=== PATIENT | female | born 1965 | race Caucasian/White ===

== ENCOUNTER → 2017-09-18 | Outpatient (CLI) | payer BC | END | disposition home or self-care (01) | LOC: C.PAPS 11:56 | PROVIDERS: ATTEND Obstetrics & Gynecology | DX: Z01.419 Encounter for gynecological examination (general) (routine) without abnormal findings (principal) ==

== ENCOUNTER → 2017-09-24 | Outpatient (CLI) | payer BC ==
--- NOTE | 2017-09-25 13:39 | MAMMOGRAPHY REPORT ---
BILATERAL DIGITAL SCREENING MAMMOGRAM TOMOSYNTHESIS WITH CAD: 09/24/2017 CLINICAL HISTORY: Routine screening. Patient has no complaints. TECHNIQUE: The study was acquired using full field digital technology and interpreted from soft copy. Breast tomosynthesis in addition to standard 2D mammography was performed. Current study was also ev aluated with a Computer Aided Detection (CAD) system. COMPARISON: Comparison is made to exams dated: 03/23/2015 mammogram, 03/22/2014 mammogram, 03/18/2013 eunice mogram, 03/17/2012 mammogram, 03/02/2011 mammogram, and 03/01/2010 mammogram - [facility]. BREAST COMPOSITION: There are scattered areas of fibroglandular density in both breasts. FINDINGS: There are stable loosely grouped punctate calcifications in the 12:00 posterior left breast , and a few other scattered benign round calcifications bilaterally. No new suspicious mass, architec tural distortion or cluster of microcalcifications is seen. IMPRESSION: ACR BI-RADS CATEGORY 2: BENIGN There is no mammographic evidence of malignancy. A 1 year screening mammogram is recommended.( 019) The patient will receive written notification of the results. Some breast cancers are not detected with mammography. A negative mammographic report should not felipe y biopsy if a clinically suggestive mass is present. Rosa Roberts M.D. ay/:09/24/2017 17:46:56 [employer] Operator: RT Georgina(Feliz)(M), [facility] letter sent: Normal 1/2 BI-RADS Code: ACR BI-RADS Category 2: Benign
== END | disposition home or self-care (01) ==
LOC: C.MAMM 10:52
PROVIDERS: ATTEND Obstetrics & Gynecology
DX: Z12.31 Encounter for screening mammogram for malignant neoplasm of breast (principal)

== ENCOUNTER 2022-01-04 11:10 | Observation (INO) ==
[2022-01-04 12:06] LABS: Basophils # (auto) 0.06 K/uL (0-0.2); Basophils % (auto) 0.6 %; Eosinophils # (auto) 0.41 K/uL (0-0.50); Eosinophils % (auto) 4.2 %; Hematocrit (blood only) 37.4 % (34.1-44.9); Hemoglobin 12.7 g/dl (12.0-16.0); Immature Granulocytes # (auto) 0.03 K/uL (0.00-0.02); Immature Granulocytes % (auto) 0.3 %; Lymphocytes # (auto) 3.02 K/uL (1.2-3.4); Lymphocytes % (auto) 30.6 %; Mean Corpuscular Hemoglobin 29.5 pg (25.0-34.0); Mean Platelet Volume 10.2 fL (9.4-12.3); Monocytes # (auto) 0.78 K/uL (0.24-0.82); Monocytes % (auto) 7.9 %; Neutrophils # (auto) 5.57 K/uL (1.4-6.5); Neutrophils % (auto) 56.4 %; Platelet Count 266 K/uL (130-400); RDW Coefficient of Variation 12.3 % (11.5-14.5); RDW Standard Deviation 39.2 fL (36.4-46.3); White Blood Count 9.87 K/ul (4.8-10.8)
--- NOTE | 2022-01-04 12:12 | XRay Report ---
XR chest 1V portable CLINICAL HISTORY: Chest Pain TECHNIQUE: Single frontal radiograph of the chest was obtained. Comparison: None available at the time of this dictation. FINDINGS: Exam is limited by underpenetration. The cardiomediastinal silhouette is normal. The lungs are clear. No evidence of pleural effusion or pneumothorax. IMPRESSION: No acute chest disease. ACT 112: Negative or not required by law. Electronically signed by: Art Samayoa M.D. 01/04/2022 12:10 PM
[2022-01-04] MEDS ORDERED: NITROGLYCERIN 2% OINTMENT 30GM TUBE EXT STA (12:18)
[2022-01-04 12:29] LABS: Albumin Globulin Ratio 1.4 (0.9-2); Albumin Level 4.1 gm/dl (3.4-5.0); BUN Creatinine Ratio 21.1 (10-20); Bilirubin,Total 0.4 mg/dl (0.2-1.0); Calcium 9.3 mg/dl (8.5-10.1); Creatinine Clr Calc Pharmacy 88.9 ml/min; Est GFR (African American) 102.3 ml/min; Est GFR (Non-African American) 88.3 ml/min; Potassium 3.7 mmol/L (3.5-5.1); Total Protein 7.1 gm/dl (6.0-8.3)
[2022-01-04 12:34] LABS: Troponin I High Sensitivity 14.9 pg/ml (0-14)
[2022-01-04] MEDS ORDERED: hydrALAZINE HCL 20 MG/ML VIAL IV ONE (13:56)
--- NOTE | 2022-01-04 13:56 | Emergency Department Note ---
Impression & Plan Hypertensive emergency, Chest discomfort, Abnormal ECG, Elevated troponin ED Provider Note INFORMANT: Patient ED PROVIDER(S): Jose Mena MD CHIEF COMPLAINT: High blood pressure PLAN: Disposition: Admitted Condition: Good Outpatient prescription management: none Referral: None MEDICAL DECISION MAKING: Patient presented because of high blood pressure but also had chest discomfort and an abnormal ECG. She was given Nitropaste. Blood work was performed. Her ECG here did confirm the anterior and inferolateral T wave inversions. The patient did feel somewhat better after the Nitropaste. She was also given a dose of IV hydralazine. I did discuss the case with cardiology, Dr. Rendon. He recommended admission, serial troponin, and echocardiogram with potential other testing. He recommended not to give IV heparin at this point. I did consult with [facility]. Patient was evaluated in the ER admitted for further management. Triage Nursing notes reviewed and agree them. Vital Signs: reviewed and remarkable for hypertension Differential diagnosis: Benign hypertension, hypertensive emergency, cardiovascular pathology, toxicologic, pheochromocytoma, electrolyte abnormality, renal disease, endorgan damage, as well as other pathologies. Diagnostics interpreted by me: ECG: Twelve-lead ECG reveals a normal sinus rhythm at 70 bpm. There is inferior and anterolateral T wave inversions. No ST elevation. Cardiac Monitoring: Cardiac monitoring ordered by me: The patient was placed on continuous cardiac monitoring and observed. It revealed a normal sinus rhythm at 65 beats per minute without ectopy or evidence of dysrhythmia. Imaging studies: Chest x-ray. Findings: A chest x-ray was performed and revealed no pneumothorax, effusion, infiltrate, pulmonary edema, free air under the diaphragm, or wide mediastinum. Impression: No acute disease. HPI: The patient is a 56 year old female who presents to the Emergency Room with complaints of high blood pressure. This started today and is noted to be found at her doctor's office. The patient has noted her blood pressure was elevated over the last week or so. She noted over the last few days she has had some chest pressure. When she was at the doctor's office she was found to have a blood pressure that was greater than 180/100. She was given an oral dose of clonidine. EMS was summoned as she had an abnormal ECG with inferior and anterolateral T wave inversions. The patient was given aspirin by EMS.. The patient also notes the following associated symptoms, none. Current pain is rated as 0/10. Pt denies LOC, headache, fevers, chills, diaphoresis, visual changes, neck pain, breathing difficulties, nausea, vomiting, abdominal pain, back pain, melena, hematochezia, urinary symptoms, numbness, weakness, lymphadenopathy, rash, or other complaints. ROS: See above HPI for pertinent positives & negatives. A total of 10 systems reviewed and were otherwise negative. PAST MEDICAL HISTORY:See Below , hypothyroidism PAST SURGICAL HISTORY:See Below, FAMILY HISTORY:See Below SOCIAL HISTORY:See Below, HOME MEDICATIONS:See Below ALLERGIES:See Below VITALS:See Below PHYSICAL EXAMINATION: GENERAL: Awake, alert, well-appearing, in no distress HENT: Normocephalic, atraumatic. Oropharynx unremarkable. EYES: Normal conjunctiva. Sclera non-icteric. NECK: Inspection normal. Non-tender. Supple. No nuchal rigidity. FROM. No masses. RESPIRATORY: Clear to auscultation. No wheezes. No rales. Normal respiratory effort. CARDIAC: Normal rate. Normal rhythm. No murmurs. No rubs. Extremities warm and well perfused. Pulses equal. No JVD. GI: Soft, non-distended. No tenderness to palpation. No rebound or guarding. No masses. RECTAL: Deferred. MUSCULOSKELETAL: Atraumatic. Chest examination reveals no tenderness. The back is symmetrical on inspection without obvious abnormality. There is no CVA tenderness to palpation. No joint edema. LOWER EXTREMITIES: Calves are equal size bilaterally and non-tender. No edema. No discoloration. NEURO: Normal sensorium. No sensory or motor deficits noted. SKIN: No rash or jaundice noted. Jose Mena MD Past Med/Surg History Medical History (Updated 01/04/22 @ 14:43 by Jose Mena MD) Chronic vulvitis Chronic vulvitis Contraception management Encounter for contraceptive management Encounter for screening colonoscopy Hypothyroidism Hypothyroidism Rectocele Routine gynecological examination Surgical History No history of previous surgery Family History Mother Uterine cancer Denies family history of Ovarian cancer Breast cancer Colorectal cancer Social History (Updated 02/04/22 @ 14:40 by Yahaira Krishnamurthy Smoking Status: Never smoker Feels Safe at Home: Yes Allergies Allergies Allergy/AdvReac Type Severity Reaction Status Date / Time No Known Drug Allergies Allergy Verified 01/04/22 11:23 walnut Allergy Verified 01/04/22 11:23 Home Meds Home Medications Medication Instructions Recorded Confirmed doxepin 10 mg capsule 10 mg PO DAILY 11/13/18 01/04/22 escitalopram oxalate 10 mg tablet 20 mg PO DAILY 11/13/18 01/04/22 levothyroxine 125 mcg tablet 125 mcg PO DAILY 11/13/18 01/04/22 Results & Data (ED) Vital Signs Vital Signs - 24 hr 01/04/22 11:31 01/04/22 11:31 01/04/22 12:20 Temperature 36.7 C 36.7 C Temperature Source Oral Oral Pulse Rate 192 H 67 Pulse Rate [Apical] 64 Pulse Rhythm Regular Pulse Rhythm [Apical] Respiratory Rate 18 18 15 Respiratory Effort / Characteristics Non-Labored Spontaneous Non-Labored Spontaneous Respiratory Depth Normal Normal Respiratory Pattern Blood Pressure 192/118 H Blood Pressure [Left Arm] 192/118 H Blood Pressure Mean 142 Blood Pressure Mean [Left Arm] 142 Pulse Oximetry 98 98 96 Oxygen Delivery Method Room Air Room Air Room Air Sepsis Recent Fever Within 48 Hours No Sepsis New/Unexplained Change in Mental Status N/A Sepsis Action Taken by Nursing No Action Required 01/04/22 13:11 Temperature Temperature Source Pulse Rate Pulse Rate [Apical] 63 Pulse Rhythm Pulse Rhythm [Apical] Regular Respiratory Rate 14 Respiratory Effort / Characteristics Non-Labored Spontaneous Respiratory Depth Normal Respiratory Pattern Regular Blood Pressure Blood Pressure [Left Arm] 160/95 H Blood Pressure Mean Blood Pressure Mean [Left Arm] 116 Pulse Oximetry 96 Oxygen Delivery Method Room Air Sepsis Recent Fever Within 48 Hours Sepsis New/Unexplained Change in Mental Status Sepsis Action Taken by Nursing Laboratory Data Result diagrams: 01/04/22 11:28 01/04/22 11:28 Lab Results 01/04/22 01/04/22 01/04/22 Range/Units 11:28 11:28 12:23 WBC 9.87 (4.8-10.8) K/ul RBC 4.30 (3.93-5.22) M/uL Hgb 12.7 (12.0-16.0) g/dl Hct 37.4 (34.1-44.9) % MCV 87.0 (80.0-100.0) fL MCH 29.5 (25.0-34.0) pg MCHC 34.0 (32.0-36.0) g/dL RDW Std Deviation 39.2 (36.4-46.3) fL RDW Coeff of [place]ou[place] 12.3 (11.5-14.5) % Plt Count 266 (130-400) K/uL MPV 10.2 (9.4-12.3) fL Immature Gran % (Auto) 0.3 % Neut % (Auto) 56.4 % Lymph % (Auto) 30.6 % [place] % (Auto) 7.9 % Eos % (Auto) 4.2 % Baso % (Auto) 0.6 % Neut # (Auto) 5.57 (1.4-6.5) K/uL Lymph # (Auto) 3.02 (1.2-3.4) K/uL [place] # (Auto) 0.78 (0.24-0.82) K/uL Eos # (Auto) 0.41 (0-0.50) K/uL Baso # (Auto) 0.06 (0-0.2) K/uL Immature Gran # (Auto) 0.03 H (0.00-0.02) K/uL Sodium 139 (136-145) mmol/L Potassium 3.7 (3.5-5.1) mmol/L Chloride 103 (98-107) mmol/L Carbon Dioxide 29 (21-32) mmol/L Anion Gap 7 (3-11) BUN 16 (6-23) mg/dl Creatinine 0.76 (0.6-1.2) mg/dl Est Cr Clr Drug Dosing 88.9 ml/min Est GFR ( Amer) 102.3 ml/min Est GFR (Non-Af Amer) 88.3 ml/min BUN/Creatinine Ratio 21.1 H (10-20) Glucose 93 (70-99(Fasting)) mg/dl Calcium 9.3 (8.5-10.1) mg/dl Total Bilirubin 0.4 (0.2-1.0) mg/dl AST 25 (13-39) U/L ALT 25 (7-52) U/L Alkaline Phosphatase 86 (34-104) U/L Troponin I High Sens 14.9 H (0-14) pg/ml Total Protein 7.1 (6.0-8.3) gm/dl Albumin 4.1 (3.4-5.0) gm/dl Globulin 3.0 (2.5-4.0) gm/dl Albumin/Globulin Ratio 1.4 (0.9-2) Lipase 35 (11-82) U/L SARS-CoV-2, RNA, NAAT NEGATIVE (NEGATIVE) Administered Medications Discontinued Medications Hydralazine HCl (Hydralazine Hcl 20 Mg/Ml Vial) 5 mg IV NOW ONE Stop: 01/04/22 13:57 Last Admin: 01/04/22 14:05 Dose: 5 mg Documented By: KERI Nitroglycerin (Nitroglycerin 2% Ointment 30gm Tube) 0.5 inch EXT NOW STA Stop: 01/04/22 12:19 Last Admin: 01/04/22 12:38 Dose: 0.5 inch Documented By: KERI Imaging Data Radiologist's Impression: Chest X-Ray 01/04/22 11:45 XR chest 1V portable CLINICAL HISTORY: Chest Pain TECHNIQUE: Single frontal radiograph of the chest was obtained. Comparison: None available at the time of this dictation. FINDINGS: Exam is limited by underpenetration. The cardiomediastinal silhouette is normal. The lungs are clear. No evidence of pleural effusion or pneumothorax. IMPRESSION: No acute chest disease. ACT 112: Negative or not required by law. Electronically signed by: Art Samayoa M.D. 01/04/2022 12:10 PM Discharge Plan Visit Data Chief Complaint: Hypertension Stated Complaint: CHEST PAIN ED Provider: Jose Mena Discharge Problem: Hypertensive emergency, Chest discomfort, Abnormal ECG, Elevated troponin Forms Stand Alone Forms: My [facility] [employer] Prescriptions Prescriptions: No Action escitalopram oxalate 10 mg tablet 20 mg PO DAILY levothyroxine 125 mcg tablet 125 mcg PO DAILY doxepin 10 mg capsule 10 mg PO DAILY Referrals Referrals: Ysabel Pedro DO [Primary Care Provider] -
--- NOTE | 2022-01-04 15:47 | Electrocardiogram Report ---
Test Reason : Blood Pressure : / mmHG Vent. Rate : 070 BPM Atrial Rate : 070 BPM P-R Int : 164 ms QRS Dur : 080 ms QT Int : 428 ms P-R-T Axes : 022 020 -23 degrees QTc Int : 462 ms Normal sinus rhythm T wave abnormality, consider inferior ischemia T wave abnormality, consider anterolateral ischemia Abnormal ECG No previous ECGs available Confirmed by Joel Rendon ([id number]) on 01/04/2022 3:46:54 PM Referred By: REFERRED SELF Confirmed By:Joel Rendon
--- NOTE | 2022-01-04 15:57 | XCELERA ---
[id number]
--- NOTE | 2022-01-04 17:38 | Cardiology Consultation ---
Date of Consultation January 04, 2022 Assessment & Plan (1) Hypertensive emergency: (2) Abnormal ECG: (3) Elevated troponin: (4) Chest discomfort: Plan 56-year-old generally healthy woman with a paucity of vascular risk factors who presents with chest discomfort, abnormal ECG, and borderline troponin. Given markedly elevated blood pressures when prior BPs from 2018 to early 2021 were consistently normotensive (range 676493/72-82 mmHg), the possibility of secondary hypertension is raised. Depending upon her blood pressure range overnight, would consider work-up for renovascular hypertension (renal Doppler study), sleep apnea, and possibly pheochromocytoma. With normal potassium primary aldosteronism seems unlikely. Suspect that BP could reach the point where she is having supply/demand mismatch with subendocardial myocardial ischemia and angina. Therefore, mainstay of treatment is blood pressure control. Given BP lability (reading at 3 PM was only 135/86 mmHg), would recommend clonidine 0.1 mg twice daily with additional PRN dose for systolic blood pressure greater than 180 mmHg or diastolic blood pressure greater than 100 mmHg. If her BP is well controlled, borderline troponin elevation shows no peak and decay but remains flat, and she has no further chest discomfort, could proceed with stress echocardiogram tomorrow to more definitively exclude any role for obstructive coronary artery disease in her current symptoms. Obviously, if she develops chest pain with ECG changes, more aggressive evaluation with cardiac catheterization would be necessary. At this point, doubt acute thrombotic event, so heparin, aspirin, and nitrates are not necessary. Further recommendations based on overnight BP readings and subsequent stress study. History of Present Illness Reason for Consultation: Chest pain Requesting Physician: Elton Julien Attending Physician: Elton Julien History of Present Illness Generally healthy 56-year-old woman without major cardiac risk factors who has noted intermittent chest discomfort over the past several days, newly elevated blood pressure, and who had an abnormal ECG on ER evaluation earlier today. She is perimenopausal, previously normotensive, nondiabetic, and a non-smoker. BMI is 31, lipid status is uncertain, she notes significant recent emotional stress, and she had a brother who of cardiac issues (but who had multiple risk factors such as tobacco use, dietary discretion, etc.). She has felt well in general, she describes only several days of episodic mild central chest discomfort without associated symptoms occurring at rest and not persisting more than a short period of time. She apparently had an elevated blood pressure recently, she purchased a sphygmomanometer and recorded several significantly elevated values, reported them to her PCP, and was prompted to report to the ER. Evaluation shows a minimally elevated troponin ("14.8 with 14 being top normal), sinus rhythm with T wave inversions anteriorly and inferiorly, markedly elevated BP (192/118 mmHg on presentation), and a normal echocardiogram. At the time of my interview, she had no somatic complaints. Allergies Allergy/AdvReac Type Severity Reaction Status Date / Time No Known Drug Allergies Allergy Verified 01/04/22 11:23 walnut Allergy Verified 01/04/22 11:23 Home Medications Medication Instructions Recorded Confirmed Type doxepin 10 mg capsule 10 mg PO DAILY 11/13/18 01/04/22 History escitalopram oxalate 10 mg tablet 20 mg PO DAILY 11/13/18 01/04/22 History levothyroxine 125 mcg tablet 125 mcg PO DAILY 11/13/18 01/04/22 History Patient History Medical History Chronic vulvitis Chronic vulvitis Contraception management Encounter for contraceptive management Encounter for screening colonoscopy Hypothyroidism Hypothyroidism Rectocele Routine gynecological examination Surgical History No history of previous surgery Family History Mother Uterine cancer Denies family history of Ovarian cancer Breast cancer Colorectal cancer Social History Smoking Status: Never smoker Hx Alcohol Use: No Hx Substance Use: No Communication Ability: Effective Beliefs That Will Affect Care: None Current Living Situation: Spouse Other Information That Helps Us Care for You: No Feels Safe at Home: Yes Safety Concerns: Feels Safe At This Time Assistive Devices: None Physical Exam Physical Exam: Adult white female with BMI 31 in no distress. BP ranging from 135/86 mmHg to 192/118 mmHg. Pulse 67 bpm and regular without ectopy. Skin: no ecchymoses or generalized lesions. HEENT: unremarkable. Neck: no JVD or carotid bruits. Lungs: clear. Cardiac: regular rhythm, normal S1 and S2, 2/6 basal systolic ejection murmur which is nonradiating, 2/6 apical holosystolic murmur rating to the axilla, no diastolic murmur or rub. Abdomen: benign. Extremities: no edema, pulses intact. Neurologic: normal affect and conversation, nonfocal. Results & Data ([facility]) Laboratory Results Normal electrolytes, BUN 16, creatinine 0.76. Troponin 14.8 and 14.9. Diagnostic Findings ECG and echocardiogram as per HPI. Normal chest x-ray. PG Care Time/CCT Total # of Minutes Spent Total Time Spent with Patient: Total time spent is greater than 50% in coordination of care (as documented) at patient's floor/unit and/or counseling patient: Coding Level of Care Code 54900 Inpt Consult Level 4 Diagnoses Hypertensive emergency I16.1 Abnormal ECG R94.31 Elevated troponin R77.8 Chest discomfort R07.89
[2022-01-04] MEDS ORDERED: Flu Vaccine (Fluarix) 0.5mL SYR (Standard Dose) IM ONE (20:30)
[2022-01-05] MEDS: cloNIDine HCL 0.1 MG TAB PO SCH ×2 (00:35→08:24)
--- NOTE | 2022-01-05 06:26 | History & Physical Report ---
Date of Service January 04 2022 Assessment & Plan (1) Chest discomfort: Plan: Malignant hypertension in a 56 yo female with chest pain. Will admit to PCU trend trop. second set did not increase Likely demand ischemia consulted cardio: likely will have stress test in AM may order clonidine in PM (2) Hypothyroidism: Plan: resume home meds will check TSH (3) Hypertensive urgency, malignant: Plan: check for secondary hypertension previous readings in system have been normal urine metanephrines for possible pheochromocytoma check renal ultrasound to rule out renal artery stenosis may need outpatient sleep study. may use clonidine in the short term if BP rises again. Admission and Anticipated Discharge Date Admission Date: January 04, 2022 History of Present Illness Chief Complaint: chest pain Primary Care Provider: Ysabel Pedro DO 56 yo female with PMH described below presents to the hospital with intermittent chest pain. This has occurred over this past week. Pain is short lived, midstenum, sharp, nonradiating, occurs at rest. Patient ordered a BP cuff for home use and found her BP to be elevated on multiple occassions which led her to come to the ER by the advice of her PCP. Allergies Allergy/AdvReac Type Severity Reaction Status Date / Time No Known Drug Allergies Allergy Verified 01/04/22 11:23 walnut Allergy Verified 01/04/22 11:23 Home Medications Medication Instructions Recorded Confirmed Type doxepin 10 mg capsule 10 mg PO DAILY 11/13/18 01/04/22 History escitalopram oxalate 10 mg tablet 20 mg PO DAILY 11/13/18 01/04/22 History levothyroxine 125 mcg tablet 125 mcg PO DAILY 11/13/18 01/04/22 History Past Med/Surg History Medical History Chronic vulvitis Chronic vulvitis Contraception management Encounter for contraceptive management Encounter for screening colonoscopy Hypothyroidism Hypothyroidism Rectocele Routine gynecological examination Surgical History No history of previous surgery Family History Mother Uterine cancer Denies family history of Ovarian cancer Breast cancer Colorectal cancer Social History Smoking Status: Never smoker Hx Alcohol Use: No Hx Substance Use: No Communication Ability: Effective Beliefs That Will Affect Care: None Current Living Situation: Spouse Other Information That Helps Us Care for You: No Feels Safe at Home: Yes Safety Concerns: Feels Safe At This Time Assistive Devices: None Review of Systems Constitutional: no fever and no body aches Eyes: no blind spots and no discharge Ear, Nose, Mouth, Throat: no ear pain Respiratory: no cough Cardiovascular: + chest pain Gastrointestinal: no abdominal pain Genitourinary: no dysuria Musculoskeletal: no back pain Integumentary: no acne Neurologic: no gait abnormality Psychiatric: no behavioral changes Endocrine: no fatigue Hematologic / Lymphatic: no easy bleeding Allergy / Immunological: no GI upset with certain foods Physical Exam Constitutional: WD/WN, vitals as above Eyes: PERRL, conjunctivae normal, anicteric sclerae ENMT: external ear and nose normal, oropharynx normal Neck: trachea midline, no thyromegaly Respiratory: normal respiratory effort, lungs clear to auscultation Cardiovascular: RRR, no murmur, no edema Gastrointestinal (Abdomen): normal bowel sounds, soft, nontender, no hepatosplenomegaly Musculoskeletal: no cyanosis or clubbing, extremities motor strength 5/5 Skin: no rashes, warm and dry Neurologic: PERRL, EOMI, accommodation nl, no face palsy, no dysarthria Psychiatric: A+Ox3, euthymic affect Lymphatic: no cervical or axillary lymphadenopathy Results & Data Results & Data ([facility]) Vital Signs (Past 12 Hours) Vital Signs Temp Pulse Pulse Resp BP Pulse Ox O2 Del Method 01/05/22 04:37 36.7 C 66 16 151/81 H 95 Room Air 01/04/22 23:16 59 L 01/04/22 22:53 36.6 C 62 16 167/84 H 95 Room Air 01/04/22 21:45 36.7 C 66 18 176/84 H 95 Room Air 01/04/22 19:28 36.6 C 69 18 173/83 H 94 Room Air PG Care Time/CCT Total # of Minutes Spent Total Time Spent with Patient: Total time spent is greater than 50% in coordination of care (as documented) at patient's floor/unit and/or counseling patient: Coding Level of Care Code INT OBSERVATION CARE 70M LVL 3 Diagnoses Chest discomfort R07.89 Hypothyroidism E03.9 Hypertensive urgency, malignant I16.0
[2022-01-05] MEDS ORDERED: LEVOTHYROXINE SODIUM 125 MCG TABLET PO SCH ×2 (06:30→09:00)
[2022-01-05 06:59] LABS: Hematocrit (blood only) 35.7 % (34.1-44.9); Hemoglobin 12.5 g/dl (12.0-16.0); Mean Corpuscular Hemoglobin 29.7 pg (25.0-34.0); Mean Corpuscular Volume 84.8 fL (80.0-100.0); Mean Platelet Volume 10.6 fL (9.4-12.3); Platelet Count 263 K/uL (130-400); RDW Coefficient of Variation 12.2 % (11.5-14.5); RDW Standard Deviation 37.2 fL (36.4-46.3); Red Blood Count 4.21 M/uL (3.93-5.22); White Blood Count 10.21 K/ul (4.8-10.8)
[2022-01-05 07:26] LABS: BUN Creatinine Ratio 19.8 (10-20); Calcium 9.1 mg/dl (8.5-10.1); Chol HDL Ratio 4.1 (0-5); Creatinine Clr Calc Pharmacy 78.4 ml/min; Est GFR (African American) 88.1 ml/min; Est GFR (Non-African American) 76.1 ml/min; Potassium 4.1 mmol/L (3.5-5.1)
[2022-01-05 07:34] LABS: Troponin I High Sensitivity 10.8 pg/ml (0-14)
[2022-01-05] MEDS ORDERED: cloNIDine HCL 0.1 MG TAB PO PRN (07:56)
[2022-01-05] MEDS ORDERED: DOXEPIN HCL 10 MG CAPSULE PO SCH (09:00)
[2022-01-05] MEDS ORDERED: ESCITALOPRAM OXALATE 20 MG TAB PO SCH (09:00)
--- NOTE | 2022-01-05 09:34 | Cardiology Progress Note ---
Date of Service January 05, 2022 Assessment & Plan (1) Hypertensive emergency: (2) Chest discomfort: (3) Elevated troponin: (4) Abnormal ECG: Plan 1. Hypertension: Her blood pressure remains elevated, it is improved but still elevated. At this point I am going to add a low-dose beta-bravo, if we are concerned about subclinical coronary disease a beta-bravo would be helpful, this may also be helpful if we are concerned about catecholamine excess. I would probably keep her until her blood pressure is well controlled. 2. Chest discomfort: I have a low index of suspicion that this is due to ischemic heart disease. A stress test might be prudent due to the slightly e levated troponin (although that is probably due to the severe hypertension) as well as the mildly abnormal electrocardiograms. I do not think we should do it now though with her blood pressure still not very well controlled this morning. Certainly her presentation with hypertension is not due to coronary artery disease so I think it would be safe to do this in the future as an outpatient. 3. Elevated troponin: This appears to be demand ischemia, the third troponin normalized and it was minimally elevated in the first place, it could be in the presence of coronary artery disease although I think it could certainly be just due to hypertension in the absence of coronary artery disease. 4. Abnormal electrocardiogram: Her presenting electrocardiogram showed inferolateral T wave inversions, those have improved but remain somewhat abnormal. I suspect these are due to strain from severe hypertension. Admission and Anticipated Discharge Date Admission Date: January 04, 2022 Subjective Chart reviewed and patient examined. In brief this is a 56-year-old woman who has been in good cardiovascular health but presents with markedly elevated blood pressure as well as chest discomfort. Her presenting blood pressures do not seem to be properly recorded in her chart, her emergency room records suggest that her initial blood pressure was 192/118. Her blood pressure remains elevated, this morning at 07 21 her blood pressure is around 170/90. She had received hydralazine and nitroglycerin in the emergency room, though neither of these have been continued. She was started on clonidine 0.1 mg twice a day as well as as needed which remains active. Evaluation so far includes baseline laboratory studies which are generally unremarkable including CBC, chemistry (creatinine normal), cholesterol) not ideal but not markedly elevated) and TSH. Troponin measurement on presentation was minimally elevated with a descending pattern (14.9, 14.8 and then 10.8 this morning). Electrocardiography on presentation shows inferolateral T wave inversion which is abnormal, no prior tracing available. An echocardiogram done January 04, 2022 shows normal left ventricular systolic function with normal left ventricular wall motion and borderline concentric left ventricular hypertrophy. Secondary causes of hypertension are being considered due to the abrupt onset of hypertension. A renal duplex is ordered as our random urine catecholamine measurements. Her symptoms of chest discomfort are quite vague, she clearly did not have exertional symptoms in the past, she tells me she did not really notice the discomfort until she noticed that her blood pressure was elevated and then she thought maybe there was a little bit of discomfort there but it is not clear. It is not clear also that it has relieved at this point. It does not sound anginal. She has no other complaints. Physical Exam Physical Exam: Constitutional: Alert, cooperative and in no distress. HEENT: Unremarkable Neck: No jugular venous distention, carotid pulses are normal and equal bilaterally without bruits. Pulmonary: Clear to auscultation bilaterally. Cardiac: Regular rhythm with no murmur, gallop or rub. Abdomen: Soft, nontender with normal bowel sounds. Extremities: No edema. Distal pulses intact. Neurologic: No focal findings. Gait is steady. Skin: No rash, ecchymoses or petechiae. Results & Data ([facility]) Vital Signs (Past 12 Hours) Vital Signs Temp Pulse Pulse Resp BP BP Pulse Ox 01/05/22 05:57 69 01/05/22 07:21 36.4 C L 61 16 174/93 H 163/88 H 96 01/05/22 04:37 36.7 C 66 16 151/81 H 95 01/04/22 23:16 59 L 01/04/22 22:53 36.6 C 62 16 167/84 H 95 01/04/22 21:45 36.7 C 66 18 176/84 H 95 O2 Del Method 01/05/22 05:57 01/05/22 07:21 Room Air 01/05/22 04:37 Room Air 01/04/22 23:16 01/04/22 22:53 Room Air 01/04/22 21:45 Room Air Laboratory Results Cardiac Enzymes 01/04/22 01/04/22 01/05/22 Range/Units 11:28 15:38 06:11 AST 25 (13-39) U/L Troponin I High Sens 14.9 H 14.8 H Cancelled (0-14) pg/ml 01/05/22 Range/Units 06:28 AST (13-39) U/L Troponin I High Sens 10.8 D (0-14) pg/ml Lipids 01/05/22 01/05/22 Range/Units 06:11 06:28 Triglycerides Cancelled 141 Cholesterol Cancelled 191 HDL Cholesterol Cancelled 47 Cholesterol/HDL Ratio Cancelled 4.1 CBC 01/04/22 01/05/22 Range/Units 11:28 06:05 WBC 9.87 10.21 (4.8-10.8) K/ul RBC 4.30 4.21 (3.93-5.22) M/uL Hgb 12.7 12.5 (12.0-16.0) g/dl Hct 37.4 35.7 (34.1-44.9) % Plt Count 266 263 (130-400) K/uL Neut # (Auto) 5.57 (1.4-6.5) K/uL Lymph # (Auto) 3.02 (1.2-3.4) K/uL [place] # (Auto) 0.78 (0.24-0.82) K/uL Eos # (Auto) 0.41 (0-0.50) K/uL Baso # (Auto) 0.06 (0-0.2) K/uL Comprehensive Metabolic Panel 01/04/22 01/05/22 01/05/22 Range/Units 11: 06:11 06:28 Sodium 139 Cancelled 138 (136-145) mmol/L Potassium 3.7 Cancelled 4.1 (3.5-5.1) mmol/L Chloride 103 Cancelled 103 (98-107) mmol/L Carbon Dioxide 29 Cancelled 29 (21-32) mmol/L BUN 16 Cancelled 17 (6-23) mg/dl Creatinine 0.76 Cancelled 0.86 (0.6-1.2) mg/dl Glucose 93 Cancelled 84 (70-99(Fasting)) mg/dl Calcium 9.3 Cancelled 9.1 (8.5-10.1) mg/dl AST 25 (13-39) U/L ALT 25 (7-52) U/L Alkaline Phosphatase 86 (34-104) U/L Total Protein 7.1 (6.0-8.3) gm/dl Albumin 4.1 (3.4-5.0) gm/dl Intake and Output 01/04/22 01/05/22 01/05/22 22:59 06:59 14:59 Output Total 200 / 200 Balance -200 / -200 Output: Urine 200 / 200 Other: Other Intake Source NPO # Unmeasured Voids 1 Weight 86 kg Weight Measurement Method Standing Scale Diagnostic Findings Telemetry: Sinus rhythm, rate generally in the 60s. PG Care Time/CCT Total # of Minutes Spent Total Time Spent with Patient: Total time spent is greater than 50% in coordination of care (as documented) at patient's floor/unit and/or counseling patient: Coding Level of Care Code 72623 Subseq Hosp Care Lvl 3 Diagnoses Hypertensive emergency I16.1 Chest discomfort R07.89 Elevated troponin R77.8 Abnormal ECG R94.31
[2022-01-05] MEDS ORDERED: METOPROLOL SUCC 50MG EXT REL TAB PO STA (11:46)
--- NOTE | 2022-01-05 13:05 | Ultrasound Report ---
US duplex renal artery CLINICAL HISTORY: hypertensive urgency TECHNIQUE: Real-time grayscale and color and spectral Doppler ultrasound imaging of the kidneys was p erformed. Comparison: None available at the time of this dictation. FINDINGS: Right kidney measures 11.6 cm. Left kidney measures 11.6 cm. RIGHT: Normal echogenicity with preserved corticomedullary differentiation. Normal cortical thickness. No hy dronephrosis. No convincing evidence of calculus or mass. Spectral analysis: Intrarenal resistive indices measure up to 0.7. Waveforms are normal in appearance.. Renal artery pat ent with peak systolic velocity 54.6 cm/s proximally, 67.4 cm/s in the midportion, and 47.2 cm/s dist ally. Renal vein patent. LEFT: Normal echogenicity with preserved corticomedullary differentiation. Normal cortical thickness. No hy dronephrosis. No convincing evidence of calculus or mass. Spectral analysis: Intrarenal resistive indices measure up to 0.68. Waveforms are normal in appearance. Renal artery pat ent with peak systolic velocity 87.7 cm/s proximally, 77.8 cm/s in the midportion, and 100.6 cm/s dis tally. Renal vein patent. Abdominal aorta: Patent. Peak systolic velocity 99.1 cm/s. Bladder: Normal. Bilateral ureteral jets present. Reference ranges: Normal main renal artery peak systolic velocity less than 180 cm/s. Ratio of renal artery PSV to aort ic PSV less than 3.5 equates to normal or less than 60% stenosis. Only one of the two criteria listed needs to be met for diagnosis. IMPRESSION: No evidence of renal artery stenosis. ACT 112: Negative or not required by law. Electronically signed by: Art Samayoa M.D. 01/05/2022 1:04 PM
--- NOTE | 2022-01-05 13:43 | Electrocardiogram Report ---
Test Reason : Blood Pressure : / mmHG Vent. Rate : 058 BPM Atrial Rate : 058 BPM P-R Int : 172 ms QRS Dur : 078 ms QT Int : 482 ms P-R-T Axes : 041 031 -08 degrees QTc Int : 473 ms Sinus bradycardia Possible Left atrial enlargement Nonspecific T wave abnormality Prolonged QT Abnormal ECG When compared with ECG of 04-JAN-2022 11:17, Nonspecific T wave abnormality, improved in inferior and lateral leads Confirmed by Jaime Olguin ([id number]) on 01/05/2022 1:43:05 PM Referred By: REFERRED SELF Confirmed By:Jaime Olguin
--- NOTE | 2022-01-05 14:50 | Discharge Summary ---
Discharge Summary Date of Service January 05, 2022 Admission HPI Per Admitting Provider 56 yo female with PMH described below presents to the hospital with intermittent chest pain. This has occurred over this past week. Pain is short lived, midstenum, sharp, nonradiating, occurs at rest. Patient ordered a BP cuff for home use and found her BP to be elevated on multiple occassions which led her to come to the ER by the advice of her PCP. Admission Exam Per Admitting Provider Constitutional: WD/WN, vitals as above Eyes: PERRL, conjunctivae normal, anicteric sclerae ENMT: external ear and nose normal, oropharynx normal Neck: trachea midline, no thyromegaly Respiratory: normal respiratory effort, lungs clear to auscultation Cardiovascular: RRR, no murmur, no edema Gastrointestinal (Abdomen): normal bowel sounds, soft, nontender, no hepatosplenomegaly Musculoskeletal: no cyanosis or clubbing, extremities motor strength 5/5 Skin: no rashes, warm and dry Neurologic: PERRL, EOMI, accommodation nl, no face palsy, no dysarthria Psychiatric: A+Ox3, euthymic affect Lymphatic: no cervical or axillary lymphadenopathy Principal Dx & Hospital Course #1 = Principal Diagnosis (1) Chest discomfort: Presented with a sensation of chest tightness and found to have significantly elevated blood pressures on admission. Initial troponin 14.9 (normal 014), no increased on repeat troponins. EKG without evidence of VA. Symptoms improved with blood pressure control. (2) Hypertensive urgency, malignant: Evaluation for secondary hypertension initiated: Bilateral renal artery duplex without evidence of renal artery stenosis. Urine metanephrines pending, is a send out and will take several days to come back. Electrolytes normal. TSH normal. Recommend outpatient sleep study for evaluation of AMBER. Cardiology consulted and appreciate recommendations: Clonidine 0.1 mg twice daily initiated. While this improved BP, metoprolol succinate 50 mg daily was added in the event of CAD/adrenal cause of hypertension. We will have an outpatient stress test and follow-up with cardiology. (3) Hypothyroidism: TSH normal, continue home levothyroxine. Discharge Exam Constitutional WD/WN, vitals as above Respiratory normal respiratory effort, lungs clear to auscultation Cardiovascular RRR, no murmur, no edema Gastrointestinal (Abdomen) normal bowel sounds, soft, nontender, no hepatosplenomegaly Skin no rashes, warm and dry Psychiatric A+Ox3, euthymic affect Updated Medication List Medication Instructions Recorded Confirmed Type doxepin 10 mg capsule 10 mg PO DAILY 11/13/18 01/04/22 History escitalopram oxalate 10 mg tablet 20 mg PO DAILY 11/13/18 01/04/22 History levothyroxine 125 mcg tablet 125 mcg PO DAILY 11/13/18 01/04/22 History clonidine HCl 0.1 mg tablet 0.1 mg PO BID #60 tabs 01/05/22 Rx metoprolol succinate 50 mg 50 mg PO QAM #30 tabs 01/05/22 Rx tablet,extended release 24 hr Hospital Stay Data Consultations 01/04/22 14:08 Consult Cardiology Routine Diagnostic Imagining Performed 01/04/22 15:13 US duplex renal artery Routine Discharge Instructions Given to Patient (Per Discharging Provider) You were admitted to the hospital for evaluation of chest pain and elevated blood pressures. Because your blood pressure have been relatively normal to this point, we started evaluation for secondary causes of high blood pressure such as adrenal abnormalities and blockages in the kidneys. Your kidney ultrasound was normal and did not show any blockages. Urine studies were sent out to evaluate for adrenal gland causes of high blood pressure, which you should follow up with Dr. Ysabel Pedro. You were started on two blood pressure medications, which you should continue until evaluated by both Dr. Pedro and Rosa Uribe, one of the providers in Dr. Rendon's office. These were sent to the [facility]. 1) clonidine (one 0.1 milligram tablet every 12 hours). 2) metoprolol succinate (one 50 milligram tablet once daily in the morning). You have a Cardiology appointment on 01/15 at 8:30am with Rosa Uribe. She will review your blood pressure medications and talk about setting up a stress test in the near future. If you have any concerns regarding your health, such as chest pain, shortness of breath, lightheadedness like you are going to pass out, please seek urgent medical attention. If you have any concerns about your medications please contact Dr. Rendon's office. Total Time Total Time Spent Total Time Spent (In Minutes): 30 minutes Coding Level of Care Code D/C DAY MANAGEMENT >30 MINS Diagnoses Chest discomfort R07.89 Hypertensive urgency, malignant I16.0 Hypothyroidism E03.9
[2022-01-06] MEDS ORDERED: METOPROLOL SUCC 50MG EXT REL TAB PO SCH (09:00)
== END 2022-01-05 15:45 | disposition home or self-care (01) ==
LOC: ED 11:10 → 2S 11:10 → SUATTDRO 14:09 → 2S 15:51